=== PATIENT | female | born 2000 | race Caucasian/White ===

== ENCOUNTER → 2019-08-16 | Outpatient (CLI) | payer BC ==
[~2019-08-16] MED LIST: DIATRIZOATE MEGL/DIATRIZOA SOD 30 ML BTL PO ONE; FLUOXETINE HCL20 MG PO; IOPAMIDOL 370 MG/ML 200 ML INFUS..BTL INJ ONE; SODIUM CHLORIDE 0.9% 50ML 50 ML ONE
--- NOTE | 2019-08-16 18:13 | Diagnostic Imaging Report ---
EXAM: CT Abdomen and Pelvis WITH contrast INDICATION: Frequent stools. Acid reflux. Weight loss. COMPARISON: None. TECHNIQUE: Abdomen and pelvis were scanned utilizing a multidetector helical scanner from the lung base to the pubic symphysis after administration of IV contrast. Coronal and sagittal reformations were obtained. Routine protocol was performed. Scan was performed when during portal venous phase. IV CONTRAST: 150 mL of Omnipaque 300 ORAL CONTRAST: Gastrografin RADIATION DOSE: Total DLP: 207.01 mGy*cm Estimated effective dose: (DLP x 0.015 x size factor) mSv. Dose modulation, iterative reconstruction and weight base suggest that of the MA/KV was utilized to reduce the patient dose to as low as reasonably achievable COMPLICATIONS: None FINDINGS: LINES and TUBES: None. LOWER THORAX: Unremarkable HEPATOBILIARY: No focal hepatic lesions. No biliary ductal dilation. GALLBLADDER: No radio-opaque stones or sludge. No wall thickening. SPLEEN: No splenomegaly. PANCREAS: No focal masses or ductal dilatation. ADRENALS: No adrenal nodules KIDNEYS/URETERS: Kidneys enhance symmetrically. No hydronephrosis. No cystic or solid mass lesions. No stones. GI TRACT: No abnormal distention, wall thickening, or evidence of bowel obstruction. Appendix is normal. PELVIC ORGANS/BLADDER: Unremarkable. LYMPH NODES: No lymphadenopathy. VESSELS: Unremarkable. PERITONEUM / RETROPERITONEUM: No free air or fluid. BONES: Unremarkable. SOFT TISSUES: Unremarkable. IMPRESSION: 1. No acute CT abnormality in the abdomen or pelvis. 2. GI consultation recommended for further evaluation of reported acid reflux, weight loss and frequent stools Signed by: Dr. Bubba Gann M.D. on 08/16/2019 6:10 PM
== END ==
LOC: CT 15:41
PROVIDERS: ATTEND Internal Medicine Gastroenterology
DX: R63.4 Abnormal weight loss (principal); R19.5 Other fecal abnormalities
CPT/HCPCS: 74177; 81025; Q9967

== ENCOUNTER → 2020-06-05 | Outpatient (CLI) | payer BC ==
[~2020-06-05] MED LIST changes: +BENTYL10 MG/1 ML PO; -DIATRIZOATE MEGL/DIATRIZOA SOD 30 ML BTL PO ONE; -IOPAMIDOL 370 MG/ML 200 ML INFUS..BTL INJ ONE; +PANTOPRAZOLE SO40 MG PO; -SODIUM CHLORIDE 0.9% 50ML 50 ML ONE; +ZOFRAN4 MG PO
--- NOTE | 2020-06-05 09:42 | Diagnostic Imaging Report ---
Abdominal Ultrasound Clinical Diagnosis: Intractable nausea vomiting Comparison: None Technique: Multiple transaxial and longitudinal images were obtained through the abdomen with real time ultrasonography. A low-frequency curvilinear transducer was utilized. Multiple images were submitted for interpretation. Report: Liver: The liver measures 12.0 cm in the right midaxillary line. There are no focal masses or abnormal cysts. The echogenicity is within normal limits. Spleen: The spleen measures 9.9 cm in the left mid axillary line. There are no focal masses or cysts. Gallbladder: The transverse diameter is within normal limits cm. The wall measures 2 mm. There are no shadowing stones visualized. There is no sludge visualized. Sonographic Contreras's sign is negative. Biliary tree: There is no evidence of intra or extra hepatic biliary ductal dilatation. The common bile duct measures 3 mm. Portal vein: The portal vein measures 9 mm. There is hepatopedal flow. Pancreas: The pancreatic tail is not well seen secondary to overlying bowel gas. The remainder of the pancreas shows normal echotexture and no focal masses or cysts. There is no pancreatic duct dilatation. Ascites: Absent Pleural Effusion: Absent Right kidney: The right kidney measures 10.7 x 4.1 x 4.3 cm. There is no evidence of hydronephrosis, mass, cyst. Left kidney: The left kidney measures 11.0 x 5.6 x 4.8 cm. There is no evidence of hydronephrosis, mass, cyst. IVC/Aorta: Partially seen segments demonstrate no abnormality. Impression: Unremarkable abdominal ultrasound. Signed by: Bhavin Noguera MD on 06/05/2020 9:39 AM
== END ==
LOC: US 08:42
PROVIDERS: ATTEND Internal Medicine Gastroenterology
DX: R11.11 Vomiting without nausea (principal); R10.30 Lower abdominal pain, unspecified
CPT/HCPCS: 76700

== ENCOUNTER → 2020-06-09 | Day surgery (SDC) | payer BC, OTHER ==
[2020-06-09 08:20] VITALS: BP 103/61
--- NOTE | 2020-06-09 12:28 | Operative Report ---
DATE OF PROCEDURE: 06/09/2020 SURGEON: David Butt MD PROCEDURES: EGD with biopsies and esophageal dilatation. INDICATIONS FOR EGD: Dysphagia, bloating, loose stools. MEDICATIONS: The patient was done under MAC, please see anesthesiologist's note. PROCEDURE IN DETAIL: With the patient in left lateral decubitus position, a flexible fiberoptic Olympus gastroscope was introduced into the esophagus under direct visualization without any difficulty. There was some patchy erythema noted in distal esophagus. Mild stricture was noted at the GE junction, that was dilated to size 52-Setswana Orosco. The scope was then advanced with ease into the stomach, mucosa overlying the antrum revealed some patchy intense erythema and low-grade to moderate edema, and biopsies were obtained from the antrum and the body, and sent to stain for H. pylori. The pylorus was intubated with ease and the scope was advanced all the way to the second portion of the duodenum. Biopsies were obtained from the proximal second portion and the duodenal bulb to rule out sprue. The scope was then withdrawn back into the stomach and retroflexed, mucosa overlying the fundus and cardia appeared to be within normal limits. The scope was then straightened out, it was subsequently withdrawn. The patient tolerated the procedure well. IMPRESSION: 1. Distal esophagitis. 2. Esophageal stricture at GE junction, dilated to size 52-Setswana Orosco. 3. Gastritis, biopsied, biopsies sent to stain for H. pylori. 4. Rule out sprue. PLAN: 1. Follow up histology. 2. Increase Protonix to 40 mg one p.o. a.c. b.i.d. 3. Check celiac panel. David Butt MD [facility] [place] /[id number] cc: Segundo Chester DO
== END | disposition home or self-care (01) ==
LOC: ENDO 05:56
PROVIDERS: ATTEND Internal Medicine Gastroenterology
DX: K29.70 Gastritis, unspecified, without bleeding (principal); K22.2 Esophageal obstruction; K20.9 Esophagitis, unspecified; K21.9 Gastro-esophageal reflux disease without esophagitis; R19.5 Other fecal abnormalities; F32.9 Major depressive disorder, single episode, unspecified; Z01.812 Encounter for preprocedural laboratory examination; Z11.59 Encounter for screening for other viral diseases
CPT/HCPCS: 36415; 43239; 43450; 84702; U0002